=== PATIENT | female | born 1995 | race Caucasian/White ===

== ENCOUNTER 2017-09-15 03:19 | Emergency (ER) | payer MEDICAID ==
[~2017-09-15] VITALS: Ht 165.1 cm; Wt 82.1 kg
[2017-09-15 03:26] VITALS: Ht 165.1 cm; Wt 82.1 kg
[2017-09-15 07:02] VITALS: BP 140/74
== END 2017-09-15 07:02 | disposition home or self-care (01) ==
LOC: ED 03:19
DX: J02.9 Acute pharyngitis, unspecified (principal)
CPT/HCPCS: J1100

== ENCOUNTER 2017-09-19 18:46 | Emergency (ER) | payer MEDICAID ==
[~2017-09-19] VITALS: Ht 165.1 cm; Wt 79.4 kg
[2017-09-19 18:50] VITALS: Ht 165.1 cm; Wt 79.4 kg
[2017-09-19 20:26] LABS: BASOPHIL % 0.3 % (0-2); PLATELET COUNT 334 x10^3mcL (130-400); RED CELL DISTRIBUTION WIDTH 13.4 % (11.5-14.5)
[2017-09-19 20:31] LABS: CALCIUM 9.3 mg/dL (8.5-10.1); CARBON DIOXIDE 27.6 mmol/L (21-32); CHLORIDE SERUM 100 mmol/L (98-107); CREATININE SERUM 0.8 mg/dL (0.6-1.0); GFR1 > 60 mL/min; GLUCOSE SERUM 86 mg/dL (74-106); POTASSIUM SERUM 4.1 mmol/L (3.5-5.1); SODIUM SERUM 138 mmol/L (136-145)
[2017-09-19 20:36] LABS: ALKALINE PHOSPHATASE 62 U/L (46-116); ALT/SGPT 14 U/L (14-59); AST/SGOT 10 U/L (15-37); BILIRUBIN TOTAL 0.3 mg/dL (0.20-1.00); LIPASE 72 IU/L (73-393)
[2017-09-19 20:45] LABS: ALBUMIN 3.3 g/dL (3.4-5.0); TOTAL PROTEIN, SERUM 8.7 g/dL (6.4-8.2)
[2017-09-19 21:08] VITALS: BP 99/63
== END 2017-09-19 21:09 | disposition home or self-care (01) ==
LOC: ED 18:46
PROVIDERS: Emergency Medicine
DX: K12.1 Other forms of stomatitis (principal); R10.32 Left lower quadrant pain; R11.2 Nausea with vomiting, unspecified; R50.9 Fever, unspecified
CPT/HCPCS: 83880

== ENCOUNTER 2017-12-17 00:08 | Emergency (ER) | payer MEDICAID ==
[~2017-12-17] VITALS: Ht 167.6 cm; Wt 85.7 kg
[2017-12-17 00:15] VITALS: Ht 167.6 cm; Wt 85.7 kg
[2017-12-17 01:57] LABS: microscopic required? NO
[2017-12-17 02:04] LABS: BASOPHIL % 0.6 % (0-2); PLATELET COUNT 341 x10^3mcL (130-400)
[2017-12-17 02:08] LABS: CALCIUM 8.7 mg/dL (8.5-10.1); CARBON DIOXIDE 26.3 mmol/L (21-32); CHLORIDE SERUM 101 mmol/L (98-107); CREATININE SERUM 0.7 mg/dL (0.6-1.0); GFR1 > 60 mL/min; GLUCOSE SERUM 99 mg/dL (74-106); SODIUM SERUM 136 mmol/L (136-145)
[2017-12-17 02:11] LABS: UA SPECIFIC GRAVITY 1.025 (1.005-1.035); urine erythrocyte NEGATIVE (NEGATIVE)
[2017-12-17 02:13] LABS: ALKALINE PHOSPHATASE 74 U/L (46-116); ALT/SGPT 28 U/L (14-59); AST/SGOT 18 U/L (15-37); BILIRUBIN TOTAL 0.23 mg/dL (0.20-1.00); TOTAL PROTEIN, SERUM 7.4 g/dL (6.4-8.2)
[2017-12-17 02:19] LABS: ALBUMIN 3.3 g/dL (3.4-5.0)
[2017-12-17 06:02] VITALS: BP 110/64
== END 2017-12-17 06:03 | disposition home or self-care (01) ==
LOC: ED 00:08
PROVIDERS: Emergency Medicine
DX: R10.31 Right lower quadrant pain (principal); B37.3 Candidiasis of vulva and vagina; N76.0 Acute vaginitis; M41.9 Scoliosis, unspecified; M54.5 Low back pain; R51 Headache; R07.89 Other chest pain
CPT/HCPCS: 36415; 87491; 87591; J2270